=== PATIENT | female | born 1995 | race Caucasian/White ===

== ENCOUNTER 2022-07-04 15:22 | Emergency (ER) | payer SELFPAY ==
[~2022-07-04] VITALS: Ht 154.9 cm; Wt 73.0 kg
[2022-07-04 15:30] VITALS: BP 116/74
--- NOTE | 2022-07-04 16:29 | NUR ---
27 Y/O FEMALE BIB SELF C/O SORE THROAT, DRY COUGH, HOARSENESS OF VOICE X2DAYS, DENIES SICK CONTACTS, RESPIRATIONS EVEN AND UNLABORED, AFEBRILE IN TRIAGE, NOTED REDNESS ON THE THROAT AND SWELLING OF THE TONSILS NKA PMH: DENIES
--- NOTE | 2022-07-04 16:45 | NUR ---
Patient discharged with v/s stable. Written and verbal after care instructions given and explained. Patient verbalized understanding. Ambulatory with steady gait. All questions addressed prior to discharge. Advised to follow up with PMD.
== END 2022-07-04 16:45 | disposition home or self-care (01) ==
LOC: MED 15:22
DX: J06.9 Acute upper respiratory infection, unspecified (principal)
CPT/HCPCS: 99281